=== PATIENT | female | born 1965 | race Caucasian/White ===

== ENCOUNTER → 2016-09-16 | Outpatient (CLI) | payer BC ==
[~2016-09-16] MED LIST: METO25TA2 PO
--- OUTSIDE RECORDS SUMMARY | 2016-09-16 07:30 | XMS REPORT | Continuity of Care Document ---
Author Author [facility] Organization [facility] Address Unknown Phone Unavailable Allergies Active Description Code Type Severity Reaction Onset Reported/Identified Relationship to Patient Clinical Status Yes No Known Drug Allergies [id number] Drug Allergy Unknown N/ A 08/21/2013 Medications Problems Date Dx Coded Attending Type Code Diagnosis Diagnosed By 08/21/2013 ELOISA MARIE DO Ot 427.89 08/21/2013 ELOISA MARIE DO Ot 785.1 09/02/2014 Ot V76.12 09/02/2014 Ot 793.81 09/02/2014 Ot V76.12 09/02/2014 Ot V76.12 09/02/2014 Ot 786.05 09/02/2014 Ot 786.50 09/02/2014 Ot 786.50 09/02/2014 Ot 793.89 09/02/2014 Ot V76.12 09/02/2014 Ot 793.80 09/02/2014 SUKHDEV MENJIVAR MD Ot 610.0 09/02/2014 SUKHDEV MENJIVAR MD Ot 610.4 09/02/2014 SUKHDEV MENJIVAR MD Ot V67.9 09/02/2014 SUKHDEV MENJIVAR MD Ot 397.0 09/02/2014 SUKHDEV MENJIVAR MD Ot 424.0 09/02/2014 SUKHDEV MENJIVAR MD Ot 427.89 09/02/2014 SUKHDEV MENJIVAR MD Ot V76.12 09/18/2014 SUKHDEV MENJIVAR MD Ot V76.12 10/01/2015 BARRINGTON CHAMPAGNE APRN Ot N60.82 10/01/2015 TAMIKA ACOSTA, KALIE Collazo Ot Z12.31 Procedures Results Encounters ACCT No. Visit Date/Time Discharge Status Pt. Type Provider Facility Loc./Unit Complaint [id number] 09/02/2014 14:14:00 2014 23:59:59 CLS Outpatient SUKHDEV MENJIVAR MD [facility] RAD [id number] 09/10/2013 13:05:00 2013 23:59:59 CLS Outpatient SUKHDEV MENJIVAR MD [facility] CARD [id number] 08/21/2013 09:50:00 2013 11:28:00 DIS Emergency ELOISA MARIE DO [facility] ER [id number] 04/19/2013 08:56:00 2012 23:59:59 CLS Outpatient SUKHDEV MENJIVAR MD [facility] RAD [id number] 09/16/2015 08:03:00 ACT Outpatient BARRINGTON CHAMPAGNE APRN [facility] RAD [id number] 09/14/2015 15:04:00 ACT Outpatient KALIE LUNDBERG MD [facility] RAD [id number] 10/18/2012 07:37:00 Document Registration [id number] 10/08/2012 11:26:00 Document Registration [id number] 04/16/2012 12:28:00 Document Registration [id number] 04/16/2012 09:35:00 Document Registration [id number] 08/31/2011 14:05:00 Document Registration [id number] 08/18/2010 13:12:00 Document Registration [id number] 09/11/2009 10:59:00 Document Registration
--- NOTE | 2016-09-16 18:51 | Diagnostic Imaging Report ---
Digital mammogram bilateral screening. This study was compared to the prior exams of 09/14/2015, 09/02/2014, 09/10/2013, and 04/19/2013. At this time, there are no current complaints. The current study was also evaluated with a Computer Aided Detection (CAD) system. FINDINGS: The fibroglandular tissue in both breasts is extremely dense. This does limit the sensitivity of this exam. As on the prior study, there are innumerable microcalcifications scattered throughout both breasts. When compared to the previous studies, there does not appear to have been any significant change. There is no primary or secondary sign of malignancy noted. IMPRESSION: There is no evidence for malignancy. ACR BI-RADS Category 1: Negative. Result letter will be mailed to the patient. Note: At least 10% of breast cancer is not imaged by mammography. Dictated by: Dictated on workstation # [id number]
== END ==
LOC: RAD 07:27
PROVIDERS: ATTEND Family Medicine
DX: Z12.31 Encounter for screening mammogram for malignant neoplasm of breast (principal)
CPT/HCPCS: 77067

== ENCOUNTER 2016-11-10 05:37 | Outpatient (CLI) | payer BC ==
[~2016-11-10] VITALS: Ht 172.7 cm; Wt 62.1 kg
== END 2016-11-10 13:36 ==
LOC: PREOP 05:37
PROVIDERS: ATTEND Surgery
DX: Z01.818 Encounter for other preprocedural examination (principal); Z12.11 Encounter for screening for malignant neoplasm of colon

== ENCOUNTER 2016-11-14 07:54 | Day surgery (SDC) | payer BC ==
[~2016-11-14] VITALS: Ht 172.7 cm; Wt 62.1 kg
[2016-11-14] MEDS ORDERED: NS IV 500 ML 500 ML IV SCH (08:00)
[2016-11-14] MEDS ORDERED: FLUMAZENIL (ROMAZICON) 0.1 MG/ML 5 ML VIAL INJ PRN (08:00)
[2016-11-14] MEDS ORDERED: NALOXONE 0.4 MG/ML 1 ML (NARCAN) VIAL IVP PRN (08:00)
[2016-11-14 08:06] VITALS: BP 113/56
[2016-11-14] MEDS ORDERED: NS IV 500 ML 500 ML ONE (08:08)
[2016-11-14] MEDS ORDERED: fentaNYL INJECTION 100 MCG/2 ML AMP ONE ×2 (09:08→09:14)
[2016-11-14] MEDS: MIDAZOLAM 2 MG/2 ML (VERSED) VIAL IVP PRN ×4 (09:12→09:24)
--- NOTE | 2016-11-14 09:12 | Conscious Sedation/ASA ---
Conscious Sedation Pre-Proced ASA Class: 2 Airway Mallampati Classification: (algaaciq appropriate class) I. II. III, IV Lungs Heart ASA score ASA 1: a normal healthy patient ASA 2: a patient with a mild systemic disease (mid diabetes, controlled hypertension, obesity ASA 3: a patient with a severe systemic disease that limits activity (angina , COPD, prior Myocardial infarction) ASA 4: a patient with an incapacitating disease that is a constant threat to life (CHF, renal failure) ASA 5: a moribund patient not expected to survive 24 hrs. (ruptured aneurysm) ASA 6: a declared brain patient whose organs are being harvested. For emergent operations, add the letter E after the classification Grade 1 Sedation Plan: Discussed options with patient/fam Note The patient is an appropriate candidate to undergo the planned procedure, sedation, and anesthesia. The patient immediately re-assessed prior to indication. VIKASH ELIZABETH MD Nov 14, 2016 9:12 am
[2016-11-14] MEDS: fentaNYL INJECTION 100 MCG/2 ML AMP IVP PRN ×4 (09:13→09:25)
[2016-11-14] MEDS ORDERED: MIDAZOLAM 2 MG/2 ML (VERSED) VIAL ONE ×2 (09:14→09:15)
--- NOTE | 2016-11-14 09:37 | Endoscopy Procedure Report ---
Endoscopy Report Date: Nov 14, 2016 Preoperative Diagnosis: screening Study Performed: Colonoscopy Procedure Instrument: Colonoscope Endo Procedure/Findings Findings 1.: Normal Recommendations: Recommendations: 1.: Colonscopy in 10 years Copy Copies To 1: KALIE LUNDBERG MD, XAVIER M MD Nov 14, 2016 9:37 am
--- NOTE | 2016-11-14 09:38 | Discharge Inst-Simple/Standard ---
Discharge Inst-Standard Discharge Medications New, Converted or Re-Newed RX: Other Patient Instructions/Follow Up Plan of Care/Instructions/FU: repeat colonoscopy in 10 years Activity as Tolerated: Yes Discharge Diet: No Restrictions VIKASH ELIZABETH MD Nov 14, 2016 9:38 am
[2016-11-14 09:55] VITALS: BP 113/56
[2016-11-14 10:28] VITALS: BP 97/56
--- NOTE | 2016-11-14 10:36 | OPERATIVE REPORT ---
DATE OF SERVICE: 11/14/2016 PROCEDURE: Screening colonoscopy. SURGEON: Ayden. INDICATIONS FOR PROCEDURE: This lady came in for screening colonoscopy. She denied any family history of polyps or colon cancer. Informed consent was obtained after reviewing the procedure in detail. DESCRIPTION OF PROCEDURE: She was placed in left lateral decubitus position and her vital signs were monitored. Conscious sedation was achieved using Versed and fentanyl. Digital rectal examination was unremarkable. The colonoscopy was then introduced in the rectum and advanced all the up to the cecum. The bowel preparation was excellent. The scope was then withdrawn slowly and the mucosa examined in a systematic fashion. There was no abnormality. She tolerated the procedure well and was taken back to the nursing area in stable condition. IMPRESSION: Normal screening colonoscopy. No family history. Recommend repeating in 10 years. Job ID: [id number] DocumentID: [id number] Dictated Date: 11/14/2016 09:35:04 Welding Machine Operator Plasma Arc Date: 11/14/2016 10:36:23 Dictated By: VIKASH ELIZABETH MD MTDD
== END 2016-11-14 10:35 | disposition home or self-care (01) ==
LOC: ENDO 07:54
PROVIDERS: ATTEND Surgery
DX: Z12.11 Encounter for screening for malignant neoplasm of colon (principal)
CPT/HCPCS: 84703

== ENCOUNTER → 2017-09-08 | Outpatient (CLI) | payer BC ==
--- NOTE | 2017-09-08 18:07 | Diagnostic Imaging Report ---
INDICATION: Routine screening. COMPARISON: Comparison is made with prior exams from 09/16/2016 and 09/14/2015. The current study was also evaluated with a Computer Aided Detection (CAD) system. FINDINGS: Both breasts again demonstrate marked parenchymal heterogeneity and increased density, limiting the sensitivity of mammography. There are innumerable microcalcifications throughout both breasts significantly limiting evaluation. These appear to be fairly similar to prior exam. A rounded mass in the superior right breast appears stable and most consistent with benign etiology. No spiculated mass is identified. The axillae are unremarkable. IMPRESSION: No mammographic features suspicious for malignancy are identified. ACR BI-RADS Category 2: Benign findings. Result letter will be mailed to the patient. Note: At least 10% of breast cancer is not imaged by mammography. Dictated by: Dictated on workstation # [id number]
== END ==
LOC: RAD 07:39
PROVIDERS: ATTEND Family Medicine
DX: Z12.31 Encounter for screening mammogram for malignant neoplasm of breast (principal)
CPT/HCPCS: 77067

== ENCOUNTER 2018-05-30 10:00 | Outpatient (RCR) | payer BC | END 2018-07-30 | disposition home or self-care (01) | LOC: CARD 10:00 | PROVIDERS: ATTEND Nurse Practitioner Family | DX: R00.2 Palpitations (principal) | CPT/HCPCS: 93270 ==

== ENCOUNTER → 2018-09-10 | Outpatient (CLI) | payer BC ==
--- NOTE | 2018-09-10 09:23 | Diagnostic Imaging Report ---
INDICATION: Routine screening. COMPARISON: 09/08/2017 and 09/16/2016. TECHNIQUE: 2D and 3D bilateral screening mammography was performed with CAD. FINDINGS: Both breasts are heterogeneously dense, limiting the sensitivity of mammography. Innumerable calcifications throughout both breasts are again noted, limiting mammography. There are new rounded masses in the upper and outer aspect of the left breast. These appear to be fairly well-circumscribed and may represent cysts. Additional views and ultrasound would be recommended for further evaluation. The density in the inferior right breast appears stable and most likely is a cyst. The axillae are unremarkable. IMPRESSION: New circumscribed rounded masses in the upper outer left breast at mid depth. Further evaluation with additional views and ultrasound would be recommended. ACR BI-RADS Category 0: Incomplete. (Needs additional imaging evaluation). Result letter will be mailed to the patient. Note: At least 10% of breast cancer is not imaged by mammography. Dictated by: Dictated on workstation # [id number]
== END ==
LOC: RAD 07:27
PROVIDERS: ATTEND Nurse Practitioner Family
DX: Z12.31 Encounter for screening mammogram for malignant neoplasm of breast (principal); N63.21 Unspecified lump in the left breast, upper outer quadrant
CPT/HCPCS: 77067

== ENCOUNTER → 2018-09-14 | Outpatient (CLI) | payer BC ==
--- NOTE | 2018-09-14 15:47 | Diagnostic Imaging Report ---
INDICATION: Left breast densities. Patient presents for additional views. COMPARISON: Correlation is made with the recent screening study from 09/10/2018. TECHNIQUE: Unilateral left 2D and 3D diagnostic mammography was performed with CAD. This includes spot compression CC and ML as well as conventional mediolateral views. FINDINGS: Additional views show at least two circumscribed nodules in the upper-outer left breast approximately 4 and 5 cm from the nipple. These appear to be fairly well circumscribed and likely benign. Even so, sonographic interrogation of this area is recommended. No spiculated mass is seen. Numerous calcifications are again noted. IMPRESSION: Circumscribed densities in the upper outer left breast. Further evaluation with ultrasound is recommended and will be performed today. ACR BI-RADS Category 0: Incomplete. (Needs additional imaging evaluation). Result letter will be mailed to the patient. Note: At least 10% of breast cancer is not imaged by mammography. Dictated by: Dictated on workstation # [id number]
--- NOTE | 2018-09-14 16:03 | Diagnostic Imaging Report ---
INDICATION: Left breast densities. Patient presented for further evaluation. COMPARISON: Correlation is made with diagnostic mammogram earlier the same day. EXAMINATION: Interrogation f the upper outer left breast was performed. FINDINGS: There are three simple appearing cysts in the upper-outer left breast. At the 2 o'clock location, 3 cm from the , there is a circumscribed simple appearing cyst, measuring 1.2 x 0.9 x 1.4 cm. At the 3 o'clock retroareolar region there is a 1.3 x 0.7 x 1.0 cm cyst. At the 3:30 location, 1 cm from the nipple, there is a 1.4 x 1.0 x 1.1 cm cyst. No solid mass is identified. IMPRESSION: Simple cyst in the upper outer left breast correlating with the mammographic abnormality. Patient may return to routine annual screening mammography. ACR BI-RADS Category 2: Benign findings. Result letter will be mailed to the patient. Note: At least 10% of breast cancer is not imaged by mammography. Dictated on workstation # [id number]
== END ==
LOC: RAD 13:41
PROVIDERS: ATTEND Nurse Practitioner Family
DX: N63.20 Unspecified lump in the left breast, unspecified quadrant (principal); N60.02 Solitary cyst of left breast
CPT/HCPCS: 76642

== ENCOUNTER 2020-03-10 12:51 | Emergency (ER) | payer BC ==
[~2020-03-10] VITALS: Ht 172 cm; Wt 64.0 kg
--- NOTE | 2020-03-10 13:10 | NUR ---
PT CONVERTED ON HER OWN, REPEAT EKG DONE AT THIS TIME.
[2020-03-10 13:15] LABS: BASOPHILS # (AUTO) 0.1 10^3/uL (0.0-0.1); BASOPHILS % (AUTO) 1 % (0-10); EOSINOPHILS # (AUTO) 0.2 10^3/uL (0.0-0.3); EOSINOPHILS % (AUTO) 3 % (0-10); HEMATOCRIT 40 % (35-52); HEMOGLOBIN 13.6 G/DL (11.5-16.0); LYMPHOCYTES # (AUTO) 2.4 X 10^3 (1.0-4.0); LYMPHOCYTES % (AUTO) 35 % (12-44); MEAN CORPUSCULAR HEMOGLOBIN 30 PG (25-34); MEAN CORPUSCULAR HGB CONC 34 G/DL (32-36); MEAN CORPUSCULAR VOLUME 90 FL (80-99); MEAN PLATELET VOLUME 9.6 FL (7.4-10.4); MONOCYTES # (AUTO) 0.6 X 10^3 (0.0-1.0); MONOCYTES % (AUTO) 8 % (0-12); NEUTROPHILS # (AUTO) 3.8 X 10^3 (1.8-7.8); NEUTROPHILS % (AUTO) 54 % (42-75); PLATELET COUNT 232 10^3/uL (130-400); RED CELL DISTRIBUTION WIDTH 13.4 % (10.0-14.5)
[2020-03-10] MEDS ORDERED: ADENOSINE 6 MG/2 ML (ADENOCARD) VIAL IV ONE ×2 (13:15)
[2020-03-10 13:20] LABS: ALBUMIN 4.6 GM/DL (3.2-4.5)
[2020-03-10 13:21] LABS: CHLORIDE 104 MMOL/L (98-107); POTASSIUM 3.9 MMOL/L (3.6-5.0); SODIUM 139 MMOL/L (135-145)
[2020-03-10 13:22] LABS: CALCIUM 9.7 MG/DL (8.5-10.1)
[2020-03-10 13:23] LABS: GLUCOSE 128 MG/DL (70-105); PROTHROMBIN TIME PATIENT 13.7 SEC (12.2-14.7); TOTAL PROTEIN 7.6 GM/DL (6.4-8.2)
[2020-03-10 13:24] LABS: CARBON DIOXIDE 21 MMOL/L (21-32)
[2020-03-10 13:25] LABS: BILIRUBIN,TOTAL 0.8 MG/DL (0.1-1.0)
[2020-03-10] MEDS ORDERED: METOPROLOL (13:25)
[2020-03-10 13:26] LABS: ALKALINE PHOSPHATASE 80 U/L (40-136)
[2020-03-10 13:27] LABS: CREATININE SERUM 0.96 MG/DL (0.60-1.30); GFR ESTIMATED > 60
[2020-03-10 13:28] LABS: BUN/CREATININE RATIO 16
[2020-03-10 13:30] LABS: ALANINE AMINOTRANSFERASE 11 U/L (0-55)
--- NOTE | 2020-03-10 13:58 | Diagnostic Imaging Report ---
INDICATION: Tachycardia times one hour. TECHNIQUE: Single view chest 01:52 p.m. CORRELATION STUDY: 08/21/2013. FINDINGS: Heart size is within normal limits. Vascularity is slightly prominent. Lung resendiz are slightly hyperinflated but overall clear. Slight curvature of the lumbar spine versus rotation of the chest. IMPRESSION: 1. Heart size is stable. Vascularity is slightly increased but without failure. Dictated by: Dictated on workstation # [id number]
--- NOTE | 2020-03-10 14:25 | ED Cardiac General ---
History of Present Illness General Chief Complaint: Cardiac/General Problems Stated Complaint: RAPID PULSE Nursing Triage Note: PT STATES HER HEART HAS BEEN RACING FOR ABOUT AN HOUR, RATE OF 149 ON ARRIVAL, STATES NO PAIN BUT FEELS TIRED. Source: patient Exam Limitations: no limitations History of Present Illness Date Seen by Provider: Mar 10, 2020 Time Seen by Provider: 13:00 Initial Comments This 54-year-old woman presents to the emergency room with tachycardia, shortness of breath, and fatigue starting earlier this morning. She reports a history of rapid heart rate which she is normally able to abort with Valsalva maneuver. She has not been able to abort the tachycardia this morning. She does not recognize SVT as a given diagnosis. She does not follow with a bundle collector at present. She denies any chest pain. Allergies and Home Medications Allergies Coded Allergies: Sulfa (Sulfonamide Antibiotics) (Verified Allergy, Intermediate, 03/10/20) Home Medications Metoprolol Tartrate 25 Mg Tablet, 25 MG PO BID, (Reported) Patient Home Medication List Home Medication List Reviewed: Yes Review of Systems Review of Systems Constitutional: see HPI EENTM: No Symptoms Reported Respiratory: See HPI Cardiovascular: See HPI Gastrointestinal: No Symptoms Reported Genitourinary: No Symptoms Reported Musculoskeletal: no symptoms reported Skin: no symptoms reported Psychiatric/Neurological: No Symptoms Reported Endocrine: No Symptoms Reported Past Zaftskz-Fwnubu-Rpkthw Hx Past Med/Social Hx: Reviewed Nursing Past Med/Soc Hx Patient Social History Alcohol Use: Denies Use Recreational Drug Use: No Smoking Status: Never a Smoker Recent Foreign Travel: No Contact w/Someone Who Travel: No Recent Infectious Disease Expo: No Recent Hopitalizations: No Physical Abuse: No Sexual Abuse: No Mistreated: No Fear: No Seasonal Allergies Seasonal Allergies: No Past Medical History Surgeries: Yes (right leg vein stripping) Respiratory: No Cardiac: Yes (MVP, SVT) Valvular Heart Disease Neurological: No : 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 0.0oz. 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 Norm as Tested Skin: Normal Color, Warm/Dry Progress/Results/Core Measures Results/Orders Lab Results Laboratory Tests Test 03/10/20 13:06 Range/Units White Blood Count 7.0 4.3-11.0 10^3/uL Red Blood Count 4.48 4.35-5.85 10^6/uL Hemoglobin 13.6 11.5-16.0 G/DL Hematocrit 40 35-52 % Mean Corpuscular Volume 90 80-99 FL Mean Corpuscular Hemoglobin 30 25-34 PG Mean Corpuscular Hemoglobin Concent 34 32-36 G/DL Red Cell Distribution Width 13.4 10.0-14.5 % Platelet Count 232 130-400 10^3/uL Mean Platelet Volume 9.6 7.4-10.4 FL Neutrophils (%) (Auto) 54 42-75 % Lymphocytes (%) (Auto) 35 12-44 % Monocytes (%) (Auto) 8 0-12 % Eosinophils (%) (Auto) 3 0-10 % Basophils (%) (Auto) 1 0-10 % Neutrophils # (Auto) 3.8 1.8-7.8 X 10^3 Lymphocytes # (Auto) 2.4 1.0-4.0 X 10^3 Monocytes # (Auto) 0.6 0.0-1.0 X 10^3 Eosinophils # (Auto) 0.2 0.0-0.3 10^3/uL Basophils # (Auto) 0.1 0.0-0.1 10^3/uL Prothrombin Time 13.7 12.2-14.7 SEC INR Comment 1.0 0.8-1.4 Activated Partial Thromboplast Time 33 24-35 SEC Sodium Level 139 135-145 MMOL/L Potassium Level 3.9 3.6-5.0 MMOL/L Chloride Level 104 98-107 MMOL/L Carbon Dioxide Level 21 21-32 MMOL/L Anion Gap 14 5-14 MMOL/L Blood Urea Nitrogen 15 7-18 MG/DL Creatinine 0.96 0.60-1.30 MG/DL Estimat Glomerular Filtration Rate > 60 BUN/Creatinine Ratio 16 Glucose Level 128 H 70-105 MG/DL Calcium Level 9.7 8.5-10.1 MG/DL Corrected Calcium 8.5-10.1 MG/DL Magnesium Level 2.0 1.6-2.4 MG/DL Total Bilirubin 0.8 0.1-1.0 MG/DL Aspartate Amino Transf (AST/SGOT) 20 5-34 U/L Alanine Aminotransferase (ALT/SGPT) 11 0-55 U/L Alkaline Phosphatase 80 40-136 U/L Myoglobin 37.6 10.0-92.0 NG/ML Troponin I < 0.028 <0.028 NG/ML Total Protein 7.6 6.4-8.2 GM/DL Albumin 4.6 H 3.2-4.5 GM/DL My Orders Orders - NORMA HELLER MD Cbc With Automated Diff (03/10/20 13:08) Magnesium (03/10/20 13:08) Chest 1 View, Ap/Pa Only (03/10/20 13:08) Ekg Tracing (03/10/20 13:08) Comprehensive Metabolic Panel (03/10/20 13:08) Myoglobin Serum (03/10/20 13:08) Protime With Inr (03/10/20 13:08) Partial Thromboplastin Time (03/10/20 13:08) O2 (03/10/20 13:08) Monitor-Rhythm Ecg Trace Only (03/10/20 13:08) Ed Iv/Invasive Line Start (03/10/20 13:08) Troponin I (03/10/20 13:08) Adenosine Injection (Adenocard Injection (03/10/20 13:15) Adenosine Injection (Adenocard Injection (03/10/20 13:15) Ekg Tracing (03/10/20 13:26) Ekg Tracing (03/10/20 13:26) Vital Signs/I&O 03/10/20 03/10/20 13:00 14:43 Temp 36.5 36.5 Pulse 149 76 Resp 20 20 B/P (MAP) 105/84 (91) 110/82 (91) Pulse Ox 100 100 O2 Delivery Room Air Room Air Blood Pressure Mean: 91 Progress Progress Note : Progress Note Chart was reviewed. Patient was noted to have a similar episode in 2013 with a heart rate in the 150s and a similar appearing EKG. She was given adenosine at that time and converted. Adenosine was ordered to administer during this encounter. However, patient converted without treatment. Adenosine was not necessary. Dr. Bruno was consulted and presented to the ER to evaluate the patient. He ordered an outpatient echocardiogram and Holter monitor. Patient was sent to the heart center after discharge from the ER to obtain the studies. There is some question about the specific rhythm she exhibited today. It appeared to be SVT by its nature and behavior but seemed to slow for SVT. It could've also been atrial flutter. For this reason Dr. Bruno would like her to take a full aspirin daily until follow-up. EKG #1: EKG Time: 13:03 Rate: 141 Comment Narrow complex tachycardia, possibly SVT versus a flutter. Mild ST depression. No ST elevation. EKG #2: EKG Time: 13:10 Rate: 116 Intervals: Normal Comment This EKG demonstrates conversion from their complex tachycardia to regular normal sinus rhythm. There are some borderline ST depression with no ST elevation. EKG #3: EKG Time: 13:15 Rate: 78 Rhythm: Normal Sinus Intervals: Normal ECG Impression: Normal Comment Normal sinus rhythm with no ST elevation or depression. No abnormal intervals or axis deviation. Departure Impression Primary Impression: Tachyarrhythmia Disposition: 01 HOME, SELF-CARE Condition: Improved Departure-Patient Inst. Decision time for Depature: 14:22 Referrals: KALIE LUNDBERG MD (PCP) Primary Care Physician Tariq BRUNO MD Patient Instructions: Atrial Flutter, Paroxysmal Supraventricular Tachycardia (DC) Add. Discharge Instructions: After discharge from the ER check in with outpatient registration to obtain your heart monitor and echocardiogram at [facility]. Follow-up with Dr. Bruno in 2-3 weeks. If the rapid heart rate returns, bear down to Valsalva in attempt to abort the rapid heart rate. If this does not work, you may place a bag of ice on your face. If this does not work, return to the emergency room. Avoid stimulants such as caffeine, decongestants medications, diet pills, energy drinks, etc. Continue with metoprolol as previously prescribed. Follow-up with your primary care provider as soon as possible. Take aspirin 325 mg daily until follow-up with Dr. Bruno. All discharge instructions reviewed with patient and/or family. Voiced understanding. Copy Copies To 1: Tariq BRUNO MD Copies To 2: KALIE LUNDBERG MD, JOSHUA T MD Mar 10, 2020 14:25
[2020-03-10 14:43] VITALS: BP 110/82
--- NOTE | 2020-03-10 19:54 | Consultation-Cardiology ---
HPI-Cardiology Cardiology Consultation: Date of Consultation 03/10/20 Date of Admission Attending Physician Admitting Physician Daisy Cobian MD Consulting Physician Tariq BRUNO MD HPI: Time Seen by a Provider: 13:00 BCU-Daymeg-Dqshzc Hx Patient Social History Alcohol Use: Denies Use Recreational Drug Use: No Smoking Status: Never a Smoker Recent Foreign Travel: No Recent Infectious Disease Expo: No Past Medical History PMH As described under Assessment. Allergies and Home Medications Allergies Coded Allergies: Sulfa (Sulfonamide Antibiotics) (Verified Allergy, Intermediate, 03/10/20) Home Medications Metoprolol Tartrate 25 Mg Tablet, 25 MG PO BID, (Reported) Physical Exam-Cardiology Physical Exam Vital Signs/I&O 03/10/20 03/10/20 13:00 14:43 Temp 36.5 36.5 Pulse 149 76 Resp 20 20 B/P (MAP) 105/84 (91) 110/82 (91) Pulse Ox 100 100 O2 Delivery Room Air Room Air Capillary Refill : Less Than 3 Seconds Data Review Labs Laboratory Tests 03/10/20 13:06: White Blood Count 7.0, Red Blood Count 4.48, Hemoglobin 13.6, Hematocrit 40, Mean Corpuscular Volume 90, Mean Corpuscular Hemoglobin 30, Mean Corpuscular H emoglobin Concent 34, Red Cell Distribution Width 13.4, Platelet Count 232, Mean Platelet Volume 9.6, Neutrophils (%) (Auto) 54, Lymphocytes (%) (Auto) 35, Monocytes (%) (Auto) 8, Eosinophils (%) (Auto) 3, Basophils (%) (Auto) 1, Neutrophils # (Auto) 3.8, Lymphocytes # (Auto) 2.4, Monocytes # (Auto) 0.6, Eosinophils # (Auto) 0.2, Basophils # (Auto) 0.1, Prothrombin Time 13.7, INR C omment 1.0, Activated Partial Thromboplast Time 33, Sodium Level 139, Potassium Level 3.9, Chloride Level 104, Carbon Dioxide Level 21, Anion Gap 14, Blood Urea Nitrogen 15, Creatinine 0.96, Estimat Glomerular Filtration Rate > 60, BUN/Creatinine Ratio 16, Glucose Level 128H, Calcium Level 9.7, Corrected Calcium , Magnesium Level 2.0, Total Bilirubin 0.8, Aspartate Amino Transf (AST/SGOT) 20, Alanine Aminotransferase (ALT/SGPT) 11, Alkaline Phosphatase 80, Myoglobin 37.6, Troponin I < 0.028, Total Protein 7.6, Albumin 4.6H A/P-Cardiology Plan Thank you for your consultation. Please call me if you have any questions. Jean Bruno MD, FACP, FACC, FSCAI, FHRS, CCDS Interventional Cardiology Cardiac Electrophysiology Vascular Medicine and Endovascular Interventions Tariq BRUNO MD Mar 10, 2020 19:54
== END 2020-03-10 14:46 | disposition home or self-care (01) ==
LOC: EDUNIT# 12:51 → ER 12:53
DX: R00.0 Tachycardia, unspecified (principal); Z88.2 Allergy status to sulfonamides
CPT/HCPCS: 36415; 71045; 80053; 83735; 83874; 84484; 85025; 85610; 85730; 93005; 93041

== ENCOUNTER 2020-03-12 08:17 | Outpatient (RCR) | payer BC ==
[~2020-03-12 08:17] MED LIST changes: +METOPROLOL
== END 2020-06-10 | disposition home or self-care (01) ==
LOC: CARD 08:17
PROVIDERS: ATTEND Internal Medicine Interventional Cardiology
DX: I07.1 Rheumatic tricuspid insufficiency (principal); I48.92 Unspecified atrial flutter; I47.1 Supraventricular tachycardia
CPT/HCPCS: 93306

== ENCOUNTER 2021-07-22 10:55 | Outpatient (RCR) | payer BC | END 2021-07-23 | disposition home or self-care (01) | LOC: ONC 10:55 | PROVIDERS: ATTEND Radiology Radiation Oncology | DX: Z51.0 Encounter for antineoplastic radiation therapy (principal); C50.512 Malignant neoplasm of lower-outer quadrant of left female breast; Z90.12 Acquired absence of left breast and nipple; Z98.890 Other specified postprocedural states | CPT/HCPCS: 77280; 77290; 77295; 77300; 77334; 77336; 77417; 77470; 99204 ==

== ENCOUNTER 2021-08-20 10:31 | Outpatient (RCR) | payer BC | END 2021-08-23 | disposition home or self-care (01) | LOC: ONC 10:31 | PROVIDERS: ATTEND Radiology Radiation Oncology | DX: Z51.0 Encounter for antineoplastic radiation therapy (principal); C50.512 Malignant neoplasm of lower-outer quadrant of left female breast; Z90.12 Acquired absence of left breast and nipple; Z98.890 Other specified postprocedural states | CPT/HCPCS: 77307; 77334; 77336; 77417 ==

== ENCOUNTER 2021-10-14 10:55 | Outpatient (RCR) | payer BC | END 2021-10-21 | LOC: ONC 10:55 | PROVIDERS: ATTEND Radiology Radiation Oncology | DX: Z51.0 Encounter for antineoplastic radiation therapy (principal); C50.512 Malignant neoplasm of lower-outer quadrant of left female breast; Z90.12 Acquired absence of left breast and nipple; Z98.890 Other specified postprocedural states | CPT/HCPCS: 77336; 99213 ==